=== PATIENT | male | born 1980 | race Caucasian/White ===

== ENCOUNTER 2016-11-02 20:32 | Emergency (ER) | payer OTHER ==
[~2016-11-02] VITALS: Ht 182.9 cm; Wt 100.0 kg
[2016-11-02 20:33] VITALS: BP 127/78; PULSE 103; RESP 16; TEMP 99.1; O2SAT 97
--- NOTE | 2016-11-02 20:37 | PD ---
Physical Exam Time Seen by Provider: 20:36 Narrative 36 y/o male presents with R ankle pain after twisting it while running. Pain is constant, lateral, worse when walking. Vital signs reviewed. Seen at triage desk. Awaiting bed placement. Data Data Last Documented VS Vital Signs Date Time Temp Pulse Resp B/P Pulse Ox O2 Delivery O2 Flow Rate FiO2 11/02/16 20:33 99.1 103 16 127/78 97 Room Air [facility] Medical Record Reviewed: Yes Supervised Visit with ROD: Leo Velasquez November 02, 2016 20:37
--- NOTE | 2016-11-02 21:14 | PD ---
HPI Chief Complaint: Musculoskeletal Complaint Time Seen by Provider: 21:14 Travel History International Travel<30 days: No Contact w/Intl Traveler<30days: No Traveled to known affect area: No History of Present Illness HPI 36-year-old male presents to emergency department for evaluation right ankle pain. Patient was running when he rolled his right ankle. States that he felt immediate pain. Pain is a 9 out of 10 when he attempts to ambulate on it now. Denies any alterations in sensation. Pain is exacerbated with movement. Has no other symptoms to report. PFSH Past Medical History Medical History: Denies Significant Hx Respiratory: Yes (SLEEP APNEA) Social History Alcohol Use: No Tobacco Use: No Substance Use: No Allergies-Medications (Allergen,Severity, Reaction): Coded Allergies: No Known Allergies (Unverified , 11/02/16) Reported Meds & Prescriptions Reported Meds & Active Scripts Active Ibuprofen 800 Mg Tab 800 Mg PO Q8H PRN Review of Systems Except as stated in HPI: all other systems reviewed are Neg Physical Exam Narrative GENERAL: Well-nourished, well-developed patient in no acute distress SKIN: Focused skin assessment warm/dry. HEAD: Normocephalic. EYES: No scleral icterus. No injection or drainage. NECK: Supple, trachea midline. No JVD or lymphadenopathy. CARDIOVASCULAR: Regular rate and rhythm without murmurs, gallops, or rubs. RESPIRATORY: Breath sounds equal bilaterally. No accessory muscle use. EXTREMITY: The right ankle is swollen and tender over the lateral aspect but the skin is intact and there is no ligamentous instability. There is no deformity. The foot and toes are warm and well-perfused. Sensation to pain and light touch is intact. BACK: Nontender without obvious deformity. No CVA tenderness. Data Data Last Documented VS Vital Signs Date Time Temp Pulse Resp B/P Pulse Ox O2 Delivery O2 Flow Rate FiO2 11/02/16 20:33 99.1 103 16 127/78 97 Room Air Orders Ankle, Complete ([id number]) (11/02/16 ) Splint Or Brace Apply/Monitor (11/02/16 21:47) Crutches (11/02/16 ) Brace Ankle Stirrup (11/02/16 ) MDM Medical Decision Making Medical Screen Exam Complete: Yes Emergency Medical Condition: Yes Medical Record Reviewed: Yes Differential Diagnosis Sprain versus fracture versus contusion versus dislocation Narrative Course 36 George presents to the [facility] department for evaluation of right ankle pain. Physical exam is consistent with a sprain. X-ray imaging confirms no acute bony abnormality. Patient is placed in a Velcro stirrup splint. He is encouraged to follow-up with primary care provider and return immediately with any acute worsening of symptoms Diagnosis Primary Impression: Right ankle sprain Qualified Code: S93.401A - Sprain of right ankle, unspecified ligament, initial encounter Referrals: Primary Care Physician Patient Instructions: Ankle Exercises (GEN), Ankle Sprain (ED), General Instructions Additional Instructions: Brace for support No weight bearing for the next 48 hours Slowly ease into weightbearing as tolerated Ice and elevate to reduce pain and swelling Follow-up with primary care provider for complete clearance to return to full activities Return immediately with any acute worsening of symptoms Med/Other Pt SpecificInfo: Prescription(s) given Scripts Ibuprofen 800 Mg [id number] Mg PO Q8H PRN (Pain/Inflammation) #30 TAB Ref 0 Prov:Kimberley Barber 11/02/16 Disposition: 01 DISCHARGE HOME Condition: Stable Kimberley Barber November 02, 2016 21:14
[2016-11-02] MEDS ORDERED: IBUP800T23 PO (21:18)
--- NOTE | 2016-11-02 22:03 | RADRPT ---
EXAM DATE/TIME: 11/02/2016 20:48 [place] COMPARISON: No previous studies available for comparison. INDICATIONS : Ankle pain. MEDICAL HISTORY : None. SURGICAL HISTORY : None. ENCOUNTER: Initial ACUITY: 1 day PAIN SCORE: 5/10 LOCATION: Right ankle FINDINGS: Three view exam was performed of the right ankle. The bony structures are in normal alignment. No e vidence of fracture, dislocation, or soft tissue swelling. The ankle mortise is intact. No radiopaq ue foreign bodies are seen. Bony mineralization is normal. CONCLUSION: Normal examination for a patient of this age. Mark Celaya MD on November 02, 2016 at 22:00 Board Certified Radiologist. This report was verified electronically.
== END 2016-11-02 22:58 | disposition home or self-care (01) ==
LOC: NEPK 20:32
DX: S93.401A Sprain of unspecified ligament of right ankle, initial encounter (principal); G47.30 Sleep apnea, unspecified; X50.0XXA Overexertion from strenuous movement or load, initial encounter; Y93.02 Activity, running; Y92.9 Unspecified place or not applicable; Y99.8 Other external cause status
CPT/HCPCS: 73610; 99283; E0113; L1906